=== PATIENT | female | born 2000 | race Caucasian/White ===

== ENCOUNTER 2021-02-09 23:21 | Emergency (ER) | payer BC ==
[2021-02-09 23:26] VITALS: TEMP 98.4
[2021-02-09 23:57] LABS: Appearance,Urine Clear (Clear); Bilirubin,Urine Negative (Negative); Blood,Urine Negative (Negative); Color,Urine Colorless; Glucose,Urine (UA) Negative (Negative); Ketones,Urine Negative (Negative); Leukocyte Esterase,Urine Negative (Negative); Nitrite,Urine Negative (Negative); PH, Urine 6.5 (5.0-8.0); Protein,Urine Negative (Negative); Specific Gravity,Urine 1.002 (1.001-1.035); Urobilinogen,Urine <2.0 mg/dL (<2.0)
[2021-02-10] MEDS ORDERED: ACETAMINOPHEN TAB 500 MG TAB PO STA (00:13)
[2021-02-10] MEDS ORDERED: IBUPROFEN 800 MG TAB PO STA (00:13)
--- NOTE | 2021-02-10 00:15 | ED ---
Abdominal Pain HPI - General Chief Complaint: Urogenital Stated Complaint: Poss UTI Time Seen by Provider: 02/09/21 23:30 Source: patient, family, RN notes reviewed, old records reviewed Mode of arrival: ambulatory Limitations: no limitations - History of Present Illness Initial Comments: This is a 20-year-old female DF for evaluation patient presents today for evaluation regards to abdominal pain and pelvic pain. Pain. Patient has pain when she sits and stands, difficult to standing up with worsening pain. No nausea vomiting or diarrhea. No other complaints MD Complaint: abdominal pain, other (Pelvic pain) -: hour(s) Radiation: none Severity: mild Severity scale (1-10): 3 Quality: stabbing, aching Consistency: constant Improves With: nothing Worsens With: nothing Context: other (none) Associated Symptoms: denies other symptoms Treatments Prior to Arrival: other (none) - Related Data Allergies Allergy/AdvReac Type Severity Reaction Status Date / Time No Known Allergies Allergy Verified 02/09/21 23:26 Review of Systems ROS Statement: Those systems with pertinent positive or pertinent negative responses have been documented in the HPI. ROS Other: All systems not noted in ROS Statement are negative. Past Medical History Past Medical History: No Reported History History of Any Multi-Drug Resistant Organisms: None Reported Past Surgical History: No Surgical Hx Reported Past Psychological History: No Psychological Hx Reported Smoking Status: Current every day smoker Past Alcohol Use History: Occasional Past Drug Use History: Marijuana General Exam Limitations: no limitations General appearance: alert, in no apparent distress Head exam: Present: atraumatic, normocephalic, normal inspection Eye exam: Present: normal appearance, PERRL, EOMI. Absent: scleral icterus, conjunctival injection, periorbital swelling ENT exam: Present: normal exam, mucous membranes moist Neck exam: Present: normal inspection. Absent: tenderness, meningismus, lymphadenopathy Respiratory exam: Present: normal lung sounds bilaterally. Absent: respiratory distress, wheezes, rales, rhonchi, stridor Cardiovascular Exam: Present: normal rhythm, tachycardia, normal heart sounds. Absent: systolic murmur, diastolic murmur, rubs, gallop, clicks GI/Abdominal exam: Present: soft, normal bowel sounds. Absent: distended, tenderness, guarding, rebound, rigid Extremities exam: Present: normal inspection, full ROM, normal capillary refill. Absent: tenderness, pedal edema, joint swelling, calf tenderness Back exam: Present: normal inspection Neurological exam: Present: alert, oriented X3, CN II-XII intact Psychiatric exam: Present: normal affect, normal mood Skin exam: Present: warm, dry, intact, normal color. Absent: rash Course Vital Signs 02/09/21 02/10/21 23:22 01:32 Temperature 98.4 F Pulse Rate 111 H 94 Respiratory 22 18 Rate Blood Pressure 127/77 131/83 O2 Sat by Pulse 100 99 Oximetry - Reevaluation(s) Reevaluation #1: 02/10/21 00:31 Medical record is reviewed Reevaluation #2: 02/10/21 02:17 Patient still remains disimpacted her vaginal opening 02/10/21 02:18 No abdominal pain Reevaluation #3: 02/10/21 02:18 patient is informed of results and questions are answered Medical Decision Making - Medical Decision Making 20 female to the ER for evaluation of vaginal pain. Patient has pain at her Vaginal opening. No acute cause found on exam. Ultrasound is negative maybe some physiologic fluid. Urine is negative. We'll await cultures and patient to follow-up with OB - Lab Data Lab Results 02/09/21 02/09/21 02/10/21 Range/Units 23:44 23:44 01:09 POC Glucose (mg/dL) 133 H (75-99) mg/dL POC Glu Laboratory Technical Specialist ID Roberto Gong Urine Color Colorless Urine Appearance Clear (Clear) Urine pH 6.5 (5.0-8.0) Ur Specific [place] 1.002 (1.001-1.035) Urine Protein Negative (Negative) Urine Glucose (UA) Negative (Negative) Urine Ketones Negative (Negative) Urine Blood Negative (Negative) Urine Nitrite Negative (Negative) Urine Bilirubin Negative (Negative) Urine Urobilinogen <2.0 (<2.0) mg/dL Ur Leukocyte Esterase Negative (Negative) Urine HCG, Qual Not Detected (Not Detectd) - Radiology Data Radiology results: report reviewed (US is negative for acute disease), image reviewed Disposition Clinical Impression: Pelvic pain Disposition: HOME SELF-CARE Condition: Good Instructions (If sedation given, give patient instructions): Pelvic Pain in Women (ED) Is patient prescribed a controlled substance at d/c from ED?: No Referrals: None,Stated [Primary Care Provider] - 1-2 days
[2021-02-10 01:11] LABS: Glucose,Whole Blood 133 mg/dL (75-99)
[2021-02-10 01:34] VITALS: BP 131/83; PULSE 94; RESP 18
--- NOTE | 2021-02-10 01:37 | US ---
EXAMINATION TYPE: US transvaginal DATE OF EXAM: 02/10/2021 COMPARISON: NONE CLINICAL HISTORY: pain. Pain. G0. TECHNIQUE: Transvaginal (TV). TV exam is most thorough- patient agreed to TV exam. Date of LMP: 01/26/2021 EXAM MEASUREMENTS: Uterus: 8.6 x 4.6 x 3.7 cm Endometrial Stripe: Measured at 1.1 cm Right Ovary: 2.9 x 2.0 x 1.7 cm Left Ovary: 3.7 x 2.0 x 2.4 cm Exam slightly limited due to pain. 1. Uterus: Anteverted Anechoic fluid-appearing area seen in cervix: 3.1 x 0.[address] anechoic area seen in cervix. 2. Endometrium: Measured at 1.1 cm. 3. Right Ovary: Slightly limited. Subcentimeter anechoic area seen. 4. Left Ovary: Limited visibility. Measures upper limits of normal. Spectral, color and waveform doppler imaging shows arterial and venous flow within the ovaries. 5. Bilateral Adnexa: Appear to be wnl. 6. Posterior cul-de-sac: Fluid seen: 2.7 x 2.0 x 1.4 cm. IMPRESSION: There is small amount of free fluid in the cul-de-sac that could be physiologic. Small amount of flui d in the cervical canal. No endometrial thickening. No adnexal mass. No evidence of ovarian torsion.
--- NOTE | 2021-02-10 02:20 | ED ---
Medical Decision Making - Lab Data Lab Results 02/09/21 02/09/21 02/10/21 Range/Units 23:44 23:44 01:09 POC Glucose (mg/dL) 133 H (75-99) mg/dL POC Glu Marine Drafter ID Roberto Gong Urine Color Colorless Urine Appearance Clear (Clear) Urine pH 6.5 (5.0-8.0) Ur Specific [place] 1.002 (1.001-1.035) Urine Protein Negative (Negative) Urine Glucose (UA) Negative (Negative) Urine Ketones Negative (Negative) Urine Blood Negative (Negative) Urine Nitrite Negative (Negative) Urine Bilirubin Negative (Negative) Urine Urobilinogen <2.0 (<2.0) mg/dL Ur Leukocyte Esterase Negative (Negative) Urine HCG, Qual Not Detected (Not Detectd) Disposition Clinical Impression: Pelvic pain, Vulvodynia Disposition: HOME SELF-CARE Condition: Good Instructions (If sedation given, give patient instructions): Pelvic Pain in Women (ED) Is patient prescribed a controlled substance at d/c from ED?: No Referrals: Deondre Gómez MD [STAFF PHYSICIAN] - 1-2 days
[2021-02-11 14:25] LABS: C. trachomatis,PCR Negative (Neg,Equiv); Chlamydia trachomatis Source Urine; N. gonorrhoeae,PCR Negative (Neg,Equiv); Neisseria Source Urine
== END 2021-02-10 02:35 | disposition home or self-care (01) ==
LOC: EC 23:21
DX: N94.819 Vulvodynia, unspecified (principal); F17.200 Nicotine dependence, unspecified, uncomplicated; F12.90 Cannabis use, unspecified, uncomplicated
CPT/HCPCS: 36415; 76830; 81003; 81025; 87491; 87591; 87808; 93975; 99284